=== PATIENT | male | born 1995 | race Caucasian/White ===

== ENCOUNTER 2016-12-16 07:49 | Emergency (ER) | payer OTHER ==
[~2016-12-16] VITALS: Ht 180.3 cm; Wt 81.6 kg
[2016-12-16 07:58] VITALS: BP 164/89
--- NOTE | 2016-12-16 08:01 | PHYS DOC ---
Adult General Chief Complaint Chief Complaint: RIB PAIN [facility] HPI Patient is a 21 year old male with history of hypertension currently not on any medication who presents today with 6 out of 10 sharp left anterior rib pain that has been going on for 5 days. Patient states the pain is worse when he takes a deep breath or coughs. Patient states the pain got worse yesterday. Patient denies any trauma. PCP none Review of Systems Review of Systems Constitutional: Denies fever or chills [] Eyes: Denies change in visual acuity, redness, or eye pain [] HENT: Denies nasal congestion or sore throat [] Respiratory: Left anterior rib pain Cardiovascular: No additional information not addressed in HPI [] GI: Denies abdominal pain, nausea, vomiting, bloody stools or diarrhea [] : Denies dysuria or hematuria [] Musculoskeletal: Denies back pain or joint pain [] Integument: Denies rash or skin lesions [] Neurologic: Denies headache, focal weakness or sensory changes [] Endocrine: Denies polyuria or polydipsia [] Allergies Allergies Allergies Coded Allergies Type Severity Reaction Last Updated Verified No Known Drug Allergies 12/16/16 No Physical Exam Physical Exam Constitutional: Well developed, well nourished, no acute distress, non-toxic appearance. [] HENT: Normocephalic, atraumatic, bilateral external ears normal, oropharynx moist, no oral exudates, nose normal. [] Eyes: PERRLA, EOMI, conjunctiva normal, no discharge. [] Neck: Normal range of motion, no tenderness, supple, no stridor. [] Cardiovascular:Heart rate regular rhythm, no murmur [] Lungs & Thorax: Bilateral breath sounds clear to auscultation. Ribs with no obvious deformity. No bruising on the ribs. Tenderness on palpation of left anterior ribs approximately ribs 5,6 and 7 midclavicular line. Abdomen: Bowel sounds normal, soft, no tenderness, no masses, no pulsatile masses. [] Skin: Warm, dry, no erythema, no rash. [] Back: No tenderness, no CVA tenderness. [] Extremities: No tenderness, no cyanosis, no clubbing, ROM intact, no edema. [] Neurologic: Alert and oriented X 3, normal motor function, normal sensory function, no focal deficits noted. [] Psychologic: Affect normal, judgement normal, mood normal. [] Current Patient Data Vital Signs Vital Signs Date Time Temp Pulse Resp B/P (MAP) Pulse Ox O2 Delivery O2 Flow Rate FiO2 12/16/16 07:58 98.3 80 16 100 Room Air 98.3 EKG EKG [] Radiology/Procedures Radiology/Procedures [] Course & Med Decision Making Course & Med Decision Making Pertinent Labs and Imaging studies reviewed. (See chart for details) Patient is in the ED with complaints of left anterior rib pain, no known injury. Chest x-ray interpreted by radiologist as negative for any acute findings. Patient's pain is very musculoskeletal. Discharged with naproxen and Flexeril. Encouraged to take deep breaths 10 times every hour while awake. His blood pressure was in 160s/ 80s. Patient states he has history of hypertension does not follow up with the PCP. I highly advised him to consider following up for his blood pressure. Dragon Disclaimer Dragon Disclaimer This electronic medical record was generated, in whole or in part, using a voice recognition dictation system. Departure Departure Impression: Primary Impression: Rib pain on left side Additional Impression: Hypertension Disposition: HOME, SELF-CARE Condition: STABLE Patient Instructions: Hypertension Additional Instructions: You were seen for left rib pain. Your chest x-ray is normal. You blood pressure was elevated in the ED at 160s/ 80s. We highly recommend you see a primary care doctor. We provided you a list of doctors, pick a doctor from the list. Take the prescribed medicines as ordered. Scripts Cyclobenzaprine Hcl (CYCLOBENZAPRINE HCL) 10 Mg Tablet 1 TAB PO TID, #30 TAB Prov: CJ MURRAY APRN 12/16/16 Naproxen (NAPROXEN) 500 Mg Tablet.dr 1 TAB PO BID, #60 TAB 2 Refills Prov: CJ MURRAY APRN 12/16/16 Problem Qualifiers Additional Impression: Hypertension Hypertension type: unspecified secondary hypertension Qualified Codes: I15.9 - Secondary hypertension, unspecified CJ MURRAY APRN December 16, 2016 08:01
--- NOTE | 2016-12-16 08:19 | RAD ---
Exam performed: 2 views of the chest. Indication: Left-sided chest pain since yesterday, no known injury Date of Service:12/16/2016 9:57 AM . Comparison : None available Findings: PA and lateral radiographs of the chest reveal a normal cardiomediastinal contour. The lungs are clear. No pleural fluid is seen. The visualized osseous structures are unremarkable. Impression: Radiographically normal chest.
[2016-12-16] MEDS ORDERED: NAPR500T8 PO (08:47)
[2016-12-16] MEDS ORDERED: CYCL10TA2 PO (08:47)
== END 2016-12-16 08:56 | disposition home or self-care (01) ==
LOC: ER 07:49
DX: R07.81 Pleurodynia (principal); I15.9 Secondary hypertension, unspecified
CPT/HCPCS: 71020; 99284-25